=== PATIENT | male | born 1975 | race Hispanic/Latino ===

== ENCOUNTER 2019-04-28 11:44 | Emergency (ER) | payer OTHER ==
[~2019-04-28] VITALS: Ht 172.7 cm; Wt 83.9 kg
[2019-04-28 11:44] VITALS: BP 137/98
--- NOTE | 2019-04-28 11:57 | ER.PDOC ---
General Chief Complaint: Requesting Medical Care Stated Complaint: FALL, HEAD INJURY Time seen by MD: 11:54 Source: patient Exam Limitations: no limitations History of Present Illness Initial Comments Head and neck pain S/P fall coming out of his tractor, patient fell backwards. He refused passing out. He lost balance. Occurred: just prior to arrival Severity: moderate Injuries/Pain Location: head, neck Context: Lost Balance Loss of Consciousness: Brief (Seconds) Associated Symptoms: headache, neck pain Allergies: Coded Allergies: No Known Allergies (Unverified , 04/28/19) Review of Systems Constitutional: no symptoms reported Respiratory: no symptoms reported Cardiovascular: no symptoms reported Gastrointestinal: no symptoms reported Musculoskeletal: see HPI All Other Systems: Reviewed and Negative Physical Exam General Appearance: No Apparent Distress, WD/WN Head: Contusions (posterior scalp) Ears, Nose, Mouth, Throat: Hearing Grossly Normal, No Evidence of ENT Injury, No Dental Injury Neck: Tenderness Cardiovascular/Respiratory: Regular Rate, Rhythm, No M/R/G, Normal Peripheral Pulses, No JVD, Normal Breath Sounds, No Respiratory Distress Gastrointestinal: Normal Bowel Sounds, No Organomegaly, No Pulsatile Mass, Non Tender, Soft Back: Normal Inspection, No CVA Tenderness, No Vertebral Tenderness Extremities: No Evidence of Injury, Normal Range of Motion, Non-Tender, No Pedal Edema 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, No Motor/Sensory Deficits, Alert, Normal Mood/Affect, Oriented x 3 Skin: Normal Color, Warm/Dry [place] Coma Score Best Eye Response: (4) Open Spontaneously Best Verbal Response: (5) Oriented Best Motor Response: (6) Obeys Commands Results/Orders Results/Orders Orders - IVANIA MORENO MD Ct Head Wo Contrast (04/28/19 11:51) Ct Cervical Spine (04/28/19 11:51) Vital Signs Date Time Temp Pulse Resp B/P (MAP) Pulse Ox O2 Delivery O2 Flow Rate FiO2 04/28/19 12:06 98.6 86 16 137/98 (111) 97 04/28/19 12:06 17 04/28/19 11:44 98.6 86 17 97 04/28/19 11:44 98.6 86 16 EKG/XRAY/CT/US CT Comments: Nothing acute on CT head and C spine Departure Time of Disposition: 14:10 Disposition: 01 HOME, SELF-CARE Impression: Primary Impression: Head injury, acute Additional Impression: Contusion of neck Condition: Stable Additional Instructions: Ibuprofen F/U with your PCP in 2-3 days Return to ED if any concerns Duration or Time Spent with Pa: 45 mins Problem Qualifiers Primary Impression: Head injury, acute Encounter type: initial encounter Qualified Codes: S09.90XA - Unspecified injury of head, initial encounter Additional Impression: Contusion of neck Encounter type: initial encounter Qualified Codes: S10.93XA - Contusion of unspecified part of neck, initial encounter IVANIA MORENO MD Apr 28, 2019 11:57
[2019-04-28 12:06] VITALS: BP 137/98
--- NOTE | 2019-04-28 12:14 | DIREP ---
PROCEDURE:CT HEAD OR BRAIN W/O CONTRAST COMPARISON:[facility], CT, CT SPINE CERVICAL W/O, 04/28/2019, 12:06 PM. INDICATIONS:Injury, FALL, PAIN TECHNIQUE:Axial CT images were obtained from vertex to the skull base without the administration of IV contrast. FINDINGS: VENTRICLES: The ventricles are normal in size and configuration. No hydrocephalus. CEREBRUM: Normal cerebral morphology with appropriate gill white matter differentiation. No intracranial hemorrhage, mass-effect, or midline shift. No CT evidence of acute infarction. CEREBELLUM: Normal. BRAINSTEM: Normal. BASAL CISTERNS: Normal. SKULL: Normal. No fracture. SINUSES: Mild mucosal thickening in the anterior right ethmoid air cells and minimal mucosal thickening in the right maxillary sinus. Visualized paranasal sinuses and mastoid air cells are otherwise clear. OTHER: No significant scalp swelling. CONCLUSION: No acute intracranial abnormality. Dictated by: Dylan Allred MD on 04/28/2019 at 12:11 PM
--- NOTE | 2019-04-28 12:20 | DIREP ---
PROCEDURE:CT CERVICAL SPINE WITHOUT CONTRAST TECHNIQUE:Axial cuts were obtained through the cervical spine. The images were viewed at bone and soft tissue settings. Sagittal and coronal reconstructions are provided. COMPARISON:[facility], CT, CT HEAD BRAIN W/O CONTRAST, 04/28/2019, 12:09 PM. INDICATIONS:INJURY, FALL, PAIN FINDINGS: ALIGNMENT: Straightening of the normal cervical lordosis and minimal rightward cervical curvature, which is likely secondary to positioning or muscle spasm. No subluxation. VERTEBRAE/DISCS: No fracture or compression abnormality. Mild disc and facet degenerative changes, most prominent from C3-4 through C5-6. There is mild central canal stenosis at C3-4 secondary to a small central disc protrusion. No additional significant central canal stenosis. PARASPINAL AREA: No prevertebral soft tissue swelling. OTHER: No additional findings. CONCLUSION: 1. No acute abnormality involving the cervical spine. 2. Mild disc and facet degenerative changes, most prominent from C3-4 through C5-6. Mild central canal stenosis at C3-4 secondary to a small central disc protrusion. Dictated by: Dylan Allred MD on 04/28/2019 at 12:13 PM
[2019-04-28 13:00] VITALS: BP 115/66
--- NOTE | 2019-04-28 14:43 | NUR ---
IV IV REMOVED CATHETER INTACT NO BLEEDING NOTED [employer] DRESSING APPLIED.
== END 2019-04-28 14:30 | disposition home or self-care (01) ==
LOC: ER 11:44
DX: S10.93XA Contusion of unspecified part of neck, initial encounter (principal); S09.90XA Unspecified injury of head, initial encounter; W17.89XA Other fall from one level to another, initial encounter; Y93.89 Activity, other specified; Y92.89 Other specified places as the place of occurrence of the external cause; Y99.8 Other external cause status
CPT/HCPCS: 70450; 72125; 99285